=== PATIENT | female | born 2005 | race Caucasian/White ===

== ENCOUNTER 2024-05-18 00:44 | Emergency (ER) | payer BC, OTHER ==
[~2024-05-18] VITALS: Ht 170.2 cm; Wt 88.0 kg
[2024-05-18 01:15] LABS: BILIRUBIN, URINE NEGATIVE (negative); BLOOD/HGB, URINE LARGE (Negative); KETONE, URINE NEGATIVE (Negative); LEUK ESTERASE, URINE MODERATE (negative); NITRITE, URINE NEGATIVE (negative)
[2024-05-18 01:23] LABS: BACTERIA, URINE 1+ /hpf (negative); CASTS, URINE NONE SEEN \\lpf; COLLECTION TYPE, URINE CLEAN CATCH; CRYSTALS, URINE NONE SEEN (0-1+); EPITHELIAL CELLS, URINE SQUAMOUS 1+ /lpf (0-1+); REFLEX CULTURE, URINE Yes (No); WHITE BLOOD CELLS, URINE 21-40 /HPF (0-5)
[2024-05-18] MEDS ORDERED: NITROFURANTOIN MONOHYD MACROCR 100 MG CAP PO ONE (02:00)
[2024-05-18] MEDS ORDERED: ONDANSETRON 4 MG TAB ODT SL ONE (02:00)
[2024-05-18] MEDS ORDERED: MACROBID 100 M100 MG PO (02:44)
[2024-05-18 02:54] VITALS: BP 133/89
--- OUTSIDE RECORDS SUMMARY | 2024-05-18 02:55 | XMS ---
PreManage Notification: RADHA HATHAWAY Security Title Manager Events No recent Security Events currently on file CRITERIA MET - [facility] - 2 Visits in 30 Days CARE PROVIDERS Johnny Marrero DO [facility] Current PHONE: Unknown Melita has no Care Guidelines for this patient. E.Katiuska VISIT COUNT (12 MO.) [address] [place] [id number] [facility] NOTE: Visits indicate total known visits. ED/UCC VISIT TRACKING (12 MO.) 05/18/2024 00:45 [facility] [place] TYPE: Emergency COMPLAINT: - BLOOD IN URINE/BLOOD CLOTS 04/18/2024 15:50 [facility] [place] TYPE: Emergency DIAGNOSES: - Irregular menstruation, unspecified - POSSIBLE MISCARRIAGE 01/20/2024 17:58 [facility] [place] TYPE: Emergency DIAGNOSES: - Cystitis, unspecified without hematuria - URINATING BLOOD 01/08/2024 18:27 [facility] [place] TYPE: Emergency COMPLAINT: - Foot Pain_L\T\I foot injury - PAIN IN RIGHT FOOT DIAGNOSES: 0. Pain in right foot 1. Pain in right foot 3. Striking against or struck by other objects, initial encounter 4. Civilian activity done for income or pay 12/07/2023 00:19 [facility] [place] TYPE: Emergency DIAGNOSES: - Depression, unspecified - SI 11/05/2023 21:13 [facility] [place] TYPE: Emergency DIAGNOSES: - Depression, unspecified - Panic disorder [episodic paroxysmal anxiety] - SUICIDAL 10/20/2023 15:02 [facility] [place] TYPE: Emergency DIAGNOSES: - Contact with and (suspected) exposure to potentially hazardous body fluids - CHRISTINA MATHEWS 10/20/23 INPATIENT VISIT TRACKING (12 MO.) No inpatient visits to display in this time frame [email or web address]
== END 2024-05-18 02:54 | disposition home or self-care (01) ==
LOC: ED 00:44
PROVIDERS: Internal Medicine
DX: N39.0 Urinary tract infection, site not specified (principal); R31.9 Hematuria, unspecified; Z88.5 Allergy status to narcotic agent
CPT/HCPCS: 81001; 84703; 87088; 87186; 99283; A9270